=== PATIENT | female | born 1960 | race Caucasian/White ===

== ENCOUNTER → 2019-06-20 | Outpatient (CLI) | payer BC, MEDICARE ==
[2019-06-21 14:05] LABS: IGG SUBCLASS 1 476 mg/dL (248-810); IGG SUBCLASS 2 197 mg/dL (130-555); IGG SUBCLASS 3 52 mg/dL (15-102); IGG SUBCLASS 4 7 mg/dL (2-96); IMMUNOGLOBULIN G, QNT 810 mg/dL (700-1600)
[2019-06-23 00:02] LABS: IMMUNOGLOBULIN IgE 002170 134 IU/mL (6-495)
== END | disposition home or self-care (01) ==
LOC: LAB 11:50
PROVIDERS: Internal Medicine Critical Care Medicine
DX: J84.9 Interstitial pulmonary disease, unspecified (principal)

== ENCOUNTER → 2020-11-19 | Outpatient (CLI) | payer BC, MEDICARE | END | disposition home or self-care (01) | LOC: US 11:23 | PROVIDERS: ATTEND Podiatrist | DX: M79.604 Pain in right leg (principal) ==